=== PATIENT | female | born 1985 | race Two or more races ===

== ENCOUNTER 2016-11-20 15:32 | Emergency (ER) | payer MEDICAID ==
[~2016-11-20] VITALS: Ht 157.5 cm; Wt 86.2 kg
--- NOTE | 2016-11-20 16:00 | NUR ---
PT BIB FAMILY C/O L ANKLE, KNEE, AND ELBOW PAIN S/P GLF TODAY. PT REPORTS SHE IS UNABLE TO AMULATE D/T PAIN. MILD SWELLING NOTED OF L ANKLE ONLY. NO OTHER COMPLAINTS. IN ER BED 12.
--- NOTE | 2016-11-20 16:13 | NUR ---
PLACED ON BEDPAN FOR URINE SAMPLE
[2016-11-20] MEDS ORDERED: ACETAMINOPHEN ES 500 MG TABLET ONE (16:15)
--- NOTE | 2016-11-20 16:27 | NUR ---
UNABLE TO PROVIDE URINE SAMPLE AT THIS TIME. PA NOTIFIED.
[2016-11-20] MEDS ORDERED: ACETAMINOPHEN ES 500 MG TABLET PO ONE (16:30)
[2016-11-20] MEDS ORDERED: MORPHINE SULFATE INJ 4 MG/ML DISP.SYRIN ONE (19:12)
[2016-11-20] MEDS ORDERED: ONDANSETRON 4 MG TAB.RAPDIS ONE (19:12)
[2016-11-20] MEDS ORDERED: MORPHINE SULFATE INJ 2 MG/ML DISP.SYRIN IM ONE (19:30)
[2016-11-20] MEDS ORDERED: ONDANSETRON 4 MG TAB.RAPDIS SL ONE (19:30)
--- NOTE | 2016-11-20 20:22 | NUR ---
Patient discharged to home in stable condition. Written and verbal after care instructions given. Patient verbalizes understanding of instruction. PROVIDED WITH WHEELCHAIR ASSISTANCE TO CAR.
[2016-11-20 20:39] VITALS: BP 126/89
== END 2016-11-20 20:41 | disposition home or self-care (01) ==
LOC: ER 15:38
DX: S42.402A Unspecified fracture of lower end of left humerus, initial encounter for closed fracture (principal); W01.0XXA Fall on same level from slipping, tripping and stumbling without subsequent striking against object, initial encounter; Y93.01 Activity, walking, marching and hiking; Y92.480 Sidewalk as the place of occurrence of the external cause; Y99.9 Unspecified external cause status
CPT/HCPCS: 36415; 73080-TC; 73560-TC; 73610-TC; 84703-TC; A4606; J2270; Q0162; Z7610

== ENCOUNTER 2020-10-07 16:20 | Emergency (ER) | payer MEDICAID ==
[~2020-10-07] VITALS: Ht 162.6 cm; Wt 90.7 kg
[2020-10-07 16:25] VITALS: BP 153/95
--- NOTE | 2020-10-07 17:00 | NUR ---
Patient came in to the er c/o worsening flu symptoms and cough/headache, sob, tested positive for covid 3 days ago. On room air, breathing evenly and unlabored. Connected to the monitor and pulse ox. will continue to monitor accordingly.
[2020-10-07] MEDS ORDERED: BENZ-13 PO (18:50)
[2020-10-07] MEDS ORDERED: IBUP-1955 PO (18:50)
--- NOTE | 2020-10-07 19:34 | NUR ---
Patient discharged to home in stable condition. Written and verbal after care instructions given. Patient verbalizes understanding of instruction.
== END 2020-10-07 19:34 | disposition home or self-care (01) ==
LOC: ER 16:23
DX: U07.1 COVID-19 (principal); R05 Cough
CPT/HCPCS: 71045-TC